=== PATIENT | male | born 2000 | race Caucasian/White ===

== ENCOUNTER 2020-09-23 21:36 | Emergency (ER) | payer SELFPAY ==
--- NOTE | 2020-09-23 22:04 | EDM.PDOC ---
ED HPI GENERAL MEDICAL PROBLEM - General Chief Complaint: Respiratory Problem Stated Complaint: SOB Time Seen by Provider: 09/23/20 21:43 Source of Information: Reports: Patient, RN Notes Reviewed History Limitations: Reports: No Limitations - History of Present Illness INITIAL COMMENTS - FREE TEXT/NARRATIVE: Patient is a 20-year-old male presenting to the emergency department for evaluation after experiencing an episode of shortness of breath, lightheadedness, and diaphoresis at home. Symptoms occurred approximately 25 minutes prior to coming to the ER and lasted about 5 minutes in duration. States he felt slightly anxious while it was occurring. Symptoms began after he got done moving a couch. He denies any chronic medical conditions. States he had asthma as a child which he outgrew. 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 He denies any chest pain or shortness of breath at this time. He also states he did not have any chest pain when the symptoms occurred. - Related Data Allergies Allergy/AdvReac Type Severity Reaction Status Date / Time vancomycin AdvReac Rash Verified 09/23/20 21:50 Past Medical History HEENT History: Reports: Otitis Media Respiratory History: Reports: Asthma - Past Surgical History Cardiovascular Surgical History: Reports: Other (See Below) Other Cardiovascular Surgeries/Procedures: transposition of aorta surgery. Social & Family History - Tobacco Use Tobacco Use Status *Q: Never Tobacco User - Caffeine Use Caffeine Use: Reports: Soda - Recreational Drug Use Recreational Drug Use: Yes ED ROS GENERAL - Review of Systems Review Of Systems: See Below Constitutional: Reports: Diaphoresis. Denies: Fever, Chills, Weakness, Fatigue HEENT: Reports: No Symptoms Respiratory: Reports: Shortness of Breath. Denies: Pleuritic Chest Pain, Cough Cardiovascular: Reports: Lightheadedness. Denies: Chest Pain, Palpitations, Syncope Endocrine: Reports: No Symptoms GI/Abdominal: Reports: No Symptoms : Reports: No Symptoms Musculoskeletal: Reports: No Symptoms Skin: Reports: No Symptoms Neurological: Reports: No Symptoms Psychiatric: Reports: No Symptoms Hematologic/Lymphatic: Reports: No Symptoms Immunologic: Reports: No Symptoms ED EXAM, GENERAL - Physical Exam Exam: See Below Exam Limited By: No Limitations General Appearance: Alert, WD/WN, No Apparent Distress Respiratory/Chest: No Respiratory Distress, Lungs Clear, Normal Breath Sounds, No Accessory Muscle Use, Chest Non-Tender Cardiovascular: Normal Peripheral Pulses, Regular Rate, Rhythm, No Edema, No Gallop, No JVD, No Rub, Systolic Murmur (Faint) GI/Abdominal: Normal Bowel Sounds, Soft, Non-Tender, No Organomegaly, No Distention, No Abnormal Bruit, No Mass Neurological: Alert, Oriented, CN II-XII Intact, Normal Cognition, Normal Gait, Normal Reflexes, No Motor/Sensory Deficits Psychiatric: Normal Affect, Normal Mood Skin Exam: Warm, Dry, Intact, Normal Color, No Rash #1 Interpretation EKG Date: 09/23/20 Time: 22:06 Rhythm: NSR Rate (Beats/Min): 79 [place]: Normal P-Wave: Present QRS: Normal ST-T: Normal QT: Normal Comparison: NA - No Prior EKG EKG Interpretation Comments: Normal sinus rhythm at [address] wave changes No ischemia noted EKG interpreted by Dr. Angelito INIGUEZ Course - Vital Signs Last Recorded V/S: Last Vital Signs Temp 96.9 F 09/23/20 21:45 Pulse 84 09/23/20 21:45 Resp 20 09/23/20 21:45 BP 132/92 H 09/23/20 21:45 Pulse Ox 99 09/23/20 21:45 - Orders/Labs/Meds Orders: Active Orders 24 hr Category Date Time Status EKG Documentation Completion [RC] STAT Care 09/23/20 21:58 Active Chest 2V [CR] Stat Exams 09/23/20 21:58 Taken COMPREHENSIVE METABOLIC PN,CMP [CHEM] Stat Lab 09/23/20 22:05 Received TROPONIN I [CHEM] Stat Lab 09/23/20 22:05 Received Labs: Laboratory Tests 09/23/20 09/23/20 Range/Units 22:05 22:05 WBC 9.98 H (4.23-9.07) K/mm3 RBC 5.43 (4.63-6.08) M/mm3 Hgb 16.0 (13.7-17.5) gm/dl Hct 46.8 (40.1-51.0) % MCV 86.2 (79.0-92.2) fl MCH 29.5 (25.7-32.2) pg MCHC 34.2 (32.2-35.5) g/dl RDW Std Deviation 39.2 (35.1-43.9) fL Plt Count 302 (163-337) K/mm3 MPV 9.8 (9.4-12.3) fl Neut % (Auto) 64.8 (34.0-67.9) % Lymph % (Auto) 23.7 (21.8-53.1) % [place] % (Auto) 8.4 (5.3-12.2) % Eos % (Auto) 2.7 (0.8-7.0) Baso % (Auto) 0.3 (0.1-1.2) % Neut # (Auto) 6.46 H (1.78-5.38) K/mm3 Lymph # (Auto) 2.37 (1.32-3.57) K/mm3 [place] # (Auto) 0.84 H (0.30-0.82) K/mm3 Eos # (Auto) 0.27 (0.04-0.54) K/mm3 Baso # (Auto) 0.03 (0.01-0.08) K/mm3 D-Dimer, Quantitative < 0.19 L (0.19-0.50) mg/L - Re-Assessments/Exams Free Text/Narrative Re-Assessment/Exam: Patient is a 20-year-old male presenting to the emergency department for evaluation after experiencing an episode of shortness of breath at home. Symptoms occurred approximate 25 minutes prior to arrival to the ER and lasted 5 minutes in duration. He describes the feeling of being unable to catch his breath. States he did not have any tightness or pain in his chest when it occurred. He also felt lightheaded and diaphoretic. At this time he states that he is feeling back to normal. Denies any chest pain or shortness of breath. Exam is grossly unremarkable with the exception of a faint systolic murmur which she states is normal for him. He is saturating 99% on room air. Heart rate is normal. Have ordered work-up including chest x-ray, EKG, CBC, CMP, troponin, and D-dimer. 09/23/20 2305 Workup was grossly unremarkable. EKG showed NSR with no acute aschemia. D-dimer and troponin were undetectable. Chest xray was normal. Pt has had no recurrence of SOB. Discussed symptoms could have been related to a panic attack; however, there is no way to confirm this. Discharge instructions as documented. Departure - Departure Time of Disposition: 23:04 Disposition: Home, Self-Care 01 Condition: Good Clinical Impression: Shortness of breath - Discharge Information *PRESCRIPTION DRUG MONITORING PROGRAM REVIEWED*: No *COPY OF PRESCRIPTION DRUG MONITORING REPORT IN PATIENT RODOLFO: No Referrals: PCP,None [Primary Care Provider] - Forms: ED Department Discharge Additional Instructions: You were seen in the emergency department today for evaluation after having an episode of shortness of breath. Your workup included an EKG of your heart, chest xray, and blood work. Your workup was found to be normal. You do not have a blood clot in your lungs and your did not have a heart attack. While the exact cause of this episode is not known, it is possible that you experienced a panic attack which can cause the symptoms you described. Recommend that you go home and rest. If you should experience a recurrence of symptoms or any new symptoms of concern, please do not hesitate to return to the emergency department for reevaluation. Sepsis Event Note (ED) - Evaluation Sepsis Screening Result: No Definite Risk - Focused Exam Vital Signs: Vital Signs Temp Pulse Resp BP Pulse Ox 09/23/20 21:45 96.9 F 84 20 132/92 H 99 - My Orders Last 24 Hours: My Active Orders 09/23/20 21:58 EKG Documentation Completion [RC] STAT Chest 2V [CR] Stat 09/23/20 22:05 COMPREHENSIVE METABOLIC PN,CMP [CHEM] Stat TROPONIN I [CHEM] Stat - Assessment/Plan Last 24 Hours: My Active Orders 09/23/20 21:58 EKG Documentation Completion [RC] STAT Chest 2V [CR] Stat 09/23/20 22:05 COMPREHENSIVE METABOLIC PN,CMP [CHEM] Stat TROPONIN I [CHEM] Stat
--- NOTE | 2020-09-25 11:12 | CR ---
Chest: 2 views of the chest were obtained. Comparison: No previous study. Scoliosis is noted within the spine. Heart size and mediastinum are within normal limits. Lungs are clear with no acute parenchymal change. Impression: 1. Thoracic scoliosis. 2. Nothing acute is otherwise seen on 2 view chest x-ray. Diagnostic code #2
== END 2020-09-23 23:11 | disposition home or self-care (01) ==
LOC: JD.ED 21:36
DX: R06.02 Shortness of breath (principal); J45.909 Unspecified asthma, uncomplicated; Z88.1 Allergy status to other antibiotic agents
CPT/HCPCS: 36415; 71046; 71046-26; 80053; 84484; 85025; 85379; 93005; 93010; 99283; 99285-25